=== PATIENT | male | born 1940 | race Caucasian/White ===

== ENCOUNTER 2017-06-30 09:04 | Day surgery (SDC) | payer MEDICARE, OTHER ==
[~2017-06-30 09:04] MED LIST: Lactated Ringers 1,000 ML IV SCH
[2017-06-30] MEDS ORDERED: Propofol 200 MG/20 ML SDV ONE (09:10)
--- NOTE | 2017-06-30 09:42 | PCM.PREANE ---
Preanesthetic Assessment - Anesthesia/Transfusion/Family Hx Anesthesia History: Prior Anesthesia Without Reaction Family History of Anesthesia Reaction: No Transfusion History: No Prior Transfusion(s) - Review of Systems General: No Symptoms Pulmonary: No Symptoms Cardiovascular: No Symptoms Gastrointestinal: Abdominal Pain, Constipation Neurological: Other (chronic pain LLE) - Physical Assessment O2 Sat by Pulse Oximetry: 98 Respiratory Rate: 16 Vital Signs: Last Vital Signs Temp 36.2 C 06/30/17 09:09 Pulse 60 06/30/17 09:09 Resp 16 06/30/17 09:09 BP 137/89 06/30/17 09:09 Pulse Ox 98 06/30/17 09:09 Height: 1.7 m Weight: 83.915 kg ASA Class: 2 Mental Status: Alert & Oriented x3 Airway Class: Mallampati = 3 Dentition: Reports: Normal Dentition ROM/Head Extension: Full Lungs: Clear to Auscultation, Normal Respiratory Effort Cardiovascular: Regular Rate, Regular Rhythm - Allergies Allergies/Adverse Reactions: Allergies Allergy/AdvReac Type Severity Reaction Status Date / Time No Known Allergies Allergy Verified 06/30/17 09:33 - Anesthesia Plan Pre-Op Medication Ordered: None - Acknowledgements Anesthesia Type Planned: MAC Pt an Appropriate Candidate for the Planned Anesthesia: Yes Alternatives and Risks of Anesthesia Discussed w Pt/Guardian: Yes Pt/Guardian Understands and Agrees with Anesthesia Plan: Yes PreAnesthesia Questionnaire Other HEENT History: wears glasses Cardiovascular History: Reports: High Cholesterol, Hypertension Respiratory History: Reports: None Gastrointestinal History: Reports: Other (See Below) Genitourinary History: Reports: None Musculoskeletal History: Reports: Back Pain, Chronic 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, 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 Hemorrhoidectomy - SUBSTANCE USE Smoking Status *Q: Never Smoker Tobacco Use Within Last Twelve Months: No Second Hand Smoke Exposure: No Days Per Week of Alcohol Use: 7 Number of Drinks Per Day: 3 Total Drinks Per Week: 21 Recreational Drug Use History: No - HOME MEDS Home Medications: Home Meds Aspirin [[place] Aspirin] 81 mg PO DAILY 09/30/14 [History] Fish Oil/[place]-3 Fatty Acids [Fish Oil 1,000 MG] 1 tab PO DAILY 09/30/14 [ History] Lisinopril/Hydrochlorothiazide [Lisinopril-Hctz 20-12.5 mg Tab] 0.5 tab PO DAILY 09/30/14 [History] Multivitamin [Multivitamins] 1 tab PO DAILY 09/30/14 [History] Ergocalciferol (Vitamin D2) [Vitamin D] 1,000 units PO DAILY 04/25/16 [History] Gabapentin [Neurontin] 900 mg PO DAILY 11/02/16 [History] Hydrocodone/Acetaminophen [Hydrocodon-Acetaminophen 5-325] 1 tab PO ASDIRECTED PRN 11/02/16 [History] Vitamin B6-pyridOXINE 1 tab PO DAILY 11/02/16 [History] Docusate Sodium/Sennosides [Senna Plus] 1 tab PO ASDIRECTED PRN 06/27/17 [ History] Vitamin E 1,000 unit PO DAILY 06/27/17 [History] - CURRENT (IN HOUSE) MEDS Current Meds: Current Medications Lactated Ringer's (Ringers, Lactated) 1,000 mls @ 125 mls/hr IV ASDIRECTED PETEY Last Admin: 06/30/17 09:11 Dose: 125 mls/hr Discontinued Medications Lidocaine HCl (Xylocaine-Mpf 1%) Confirm Administered Dose 5 ml .ROUTE .STK-MED ONE Stop: 06/30/17 09:12 Propofol (Diprivan 20 Ml) Confirm Administered Dose 400 mg .ROUTE .STK-MED ONE Stop: 06/30/17 09:11
[2017-06-30] MEDS ORDERED: Lactated Ringers 1,000 ML IV SCH (11:30)
--- NOTE | 2017-06-30 11:30 | PCM.OPNOTE ---
- General Post-Op/Procedure Note Date of Surgery/Procedure: 06/30/17 Operative Procedure(s): Colonoscopy with biopsy of anastomosis Pre Op Diagnosis: Change in bowel habits. Personal history of colon cancer. Rectal tenesmus. Post-Op Diagnosis: Rectal polyp. Sigmoid diverticulosis. Anesthesia Technique: MAC (ASA II) Primary Surgeon: Ayden Tran Condition: Good Free Text/Narrative:: Dictation [id number] CPT CODE [id number]
--- NOTE | 2017-06-30 11:49 | PCM48HPAN ---
Post Anesthesia Note - EVALUATION WITHIN 48HRS OF ANESTHETIC Vital Signs in Normal Range: Yes Patient Participated in Evaluation: Yes Respiratory Function Stable: Yes Airway Patent: Yes Cardiovascular Function Stable: Yes Hydration Status Stable: Yes Pain Control Satisfactory: Yes Nausea and Vomiting Control Satisfactory: Yes Mental Status Recovered: Yes
--- NOTE | 2017-06-30 11:49 | PCM.POSTAN ---
POST ANESTHESIA ASSESSMENT - MENTAL STATUS Mental Status: Alert, Oriented - RESPIRATORY Respiratory Status: Respiratory Rate WNL, Airway Patent, O2 Saturation Stable - CARDIOVASCULAR CV Status: Pulse Rate WNL, Blood Pressure Stable - GASTROINTESTINAL GI Status: No Symptoms - POST OP HYDRATION Hydration Status: Adequate & Stable
[2017-06-30 12:20] VITALS: BP 122/82
--- NOTE | 2017-06-30 12:27 | OR ---
SURGEON: Ayden Tran M.D. DATE OF PROCEDURE: 06/30/2017 OPERATION PERFORMED: Colonoscopy with biopsy of anastomosis. ANESTHESIA: MAC. ASA CLASSIFICATION: II. PREOPERATIVE DIAGNOSES: 1. Change in bowel habits. 2. Personal history of colon cancer. 3. Tenesmus. POSTOPERATIVE DIAGNOSIS: Diverticulosis. DESCRIPTION OF PROCEDURE: The patient was taken to the endoscopy room, positioned on the endoscopy table in the left lateral decubitus position. Time-out was called for appropriate identification of the patient and procedure. Monitored anesthesia care was provided. The colonoscope was inserted into the rectum and advanced with minimal difficulty to the cecum where the colonoscope was retroflexed to visualize the ascending colon from below. Colonoscope was then straightened and slowly withdrawn. The cecum, ascending colon, hepatic flexure, transverse colon, splenic flexure, and descending colon showed no tumors, polyps, diverticula, or angiodysplastic changes. Sigmoid colon demonstrates moderate diverticular change. No stricture, spasm, or bleeding was noted. The colonoscope was withdrawn to the distal sigmoid colon and rectal junction where anastomosis was easily seen. There was some prominence to the anastomosis and biopsies of this area were obtained. Again, diverticular changes were noted. The colonoscope was retroflexed in the rectum to visualize the anal orifice from above. No tumors, polyps, or acute hemorrhoidal changes were noted. The colonoscope was then straightened, the rectum aspirated, and the colonoscope removed. The patient tolerated the procedure well and was taken to recovery room in stable condition. PANCHO / HILDA /[id number]
== END 2017-06-30 12:07 | disposition home or self-care (01) ==
LOC: MW.SDS 09:04
PROVIDERS: ATTEND Surgery
DX: K57.30 Diverticulosis of large intestine without perforation or abscess without bleeding (principal); E78.5 Hyperlipidemia, unspecified; I10 Essential (primary) hypertension; E79.0 Hyperuricemia without signs of inflammatory arthritis and tophaceous disease; Z79.899 Other long term (current) drug therapy; Z98.890 Other specified postprocedural states; Z90.49 Acquired absence of other specified parts of digestive tract
CPT/HCPCS: 45378; J7120; 00810; 88305; J2704

== ENCOUNTER 2018-06-23 11:07 | Emergency (ER) | payer MEDICARE, OTHER ==
--- NOTE | 2018-06-23 11:51 | EDM.PDOC ---
ED HPI GENERAL MEDICAL PROBLEM - General Chief Complaint: Back Pain or Injury Stated Complaint: BACK PAIN Time Seen by Provider: 06/23/18 11:45 Source of Information: Reports: Patient History Limitations: Reports: No Limitations - History of Present Illness INITIAL COMMENTS - FREE TEXT/NARRATIVE: HISTORY AND PHYSICAL: History of present illness: Patient is a 78-year-old male here with complaint of left lower back pain. Patient has a history of chronic low back pain with left-sided radiculopathy. He also has a history of chemotherapy induced neuropathic leg pain. He saw Dr. Deras recently and does have an MRI scheduled in 2 days as well as a referral to pain management. Patient states the pain is unbearable at this point and is requesting pain medications. He does take gabapentin for the neuropathy. He states he has hydrocodone which he takes for bowel issues which he has not tried taking for his pain. He states 2 days ago he was raking leaves and this exacerbated his back pain. He states it is an 8/10 at current but is a 10/10 with movement. He denies any saddle anesthesia, LE weakness, fevers or chills. He does have a history of bowel and bladder incontinence for years due to colon cancer but denies any worsening symptoms. Patient states he has gotten morphine in the past and this worked well for him. Review of systems: As per history of present illness and below otherwise all systems reviewed and negative. Past medical history: As per history of present illness and as reviewed below otherwise noncontributory. Surgical history: As per history of present illness and as reviewed below otherwise noncontributory. Social history: No reported history of drug or alcohol abuse. Family history: As per history of present illness and as reviewed below otherwise noncontributory. Physical exam: General: Patient sitting comfortably in no acute distress and nontoxic appearing HEENT: Atraumatic, normocephalic, pupils reactive, negative for conjunctival pallor or scleral icterus, mucous membranes moist, throat clear, neck supple, nontender, trachea midline. No meningeal signs. Lungs: Clear to auscultation, breath sounds equal bilaterally, chest nontender. Heart: S1S2, regular, negative for clicks, rubs, or overt murmur. Abdomen: Soft, nondistended, nontender. Negative for masses or hepatosplenomegaly. Negative for costovertebral tenderness. Pelvis: Stable nontender. Genitourinary: Deferred. Rectal: Deferred. Spine: No cervical, thoracic, or lumbar spinous process tenderness. Pain to palpation of the left lumbar paraspinals. Extremities: Atraumatic, negative for cords or calf pain. Neurovascular unremarkable. Dorsiflexion, plantarflexion, inversion, and eversion strength 5/ 5 bilaterally. Neuro: Awake, alert, oriented. Cranial nerves II through XII unremarkable. Cerebellum unremarkable. Motor and sensory unremarkable throughout. Exam nonfocal. Notes: Diagnostics: None Therapeutics: 4mg Morphine IM Prescriptions: Oxycodone 5mg (#10) Impression: Lumbar radiculopathy Plan: 1. Take oxycodone as needed for severe pain. Do not drive while taking this medication as it may make you drowsy. Do not taking with hydrocodone. 2. Follow up with your primary care provider 3. Return to ED as needed as discussed Definitive disposition and diagnosis as appropriate pending reevaluation and review of above. Left Back Pain Score (Numeric/FACES): 8 - Related Data Allergies Allergy/AdvReac Type Severity Reaction Status Date / Time No Known Allergies Allergy Verified 06/23/18 11:33 Home Meds: Home Meds Aspirin [[place] Aspirin EC] 81 mg PO DAILY 09/30/14 [History] Fish Oil/[place]-3 Fatty Acids [Fish Oil 1,000 MG] 1 tab PO DAILY 09/30/14 [ History] Lisinopril/Hydrochlorothiazide [Lisinopril-Hctz 20-12.5 mg Tab] 0.5 tab PO DAILY 09/30/14 [History] Multivitamin [Multivitamins] 1 tab PO DAILY 09/30/14 [History] Ergocalciferol (Vitamin D2) [Vitamin D] 1,000 units PO DAILY 04/25/16 [History] Gabapentin [Neurontin] 900 mg PO DAILY 11/02/16 [History] Vitamin B6-pyridOXINE 1 tab PO DAILY 11/02/16 [History] Docusate Sodium/Sennosides [Senna Plus] 1 tab PO ASDIRECTED PRN 06/27/17 [ History] Vitamin E 1,000 unit PO DAILY 06/27/17 [History] oxyCODONE 5 mg PO Q6HR PRN #10 tab 06/23/18 [Rx] Past Medical History Other HEENT History: wears glasses Cardiovascular History: Reports: High Cholesterol, Hypertension Respiratory History: Reports: None Gastrointestinal History: Reports: Other (See Below) Genitourinary History: Reports: None Musculoskeletal History: Reports: Back Pain, Chronic 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, 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 Psychiatric History: Reports: None Endocrine/Metabolic History: Reports: None Hematologic History: Reports: Anemia Immunologic History: Reports: None Oncologic (Cancer) History: Reports: Colon - Infectious Disease History Infectious Disease History: Reports: None - Past Surgical History Head Surgeries/Procedures: Reports: None HEENT Surgical History: Reports: Adenoidectomy, Tonsillectomy GI Surgical History: Reports: Colonoscopy, Colostomy, Hernia Repair/Other Social & Family History - Family History Family Medical History: Noncontributory - Tobacco Use Smoking Status *Q: Never Smoker - Caffeine Use Caffeine Use: Reports: Coffee - Recreational Drug Use Recreational Drug Use: No ED ROS GENERAL - Review of Systems Review Of Systems: ROS reveals no pertinent complaints other than HPI. ED EXAM,LOWER BACK PAIN/INJURY - Physical Exam Exam: See Below (see dictation) Course - Vital Signs Last Recorded V/S: Last Vital Signs Temp 36.8 C 06/23/18 11:29 Pulse 57 L 06/23/18 11:29 Resp 16 06/23/18 11:29 BP 161/56 H 06/23/18 11:29 Pulse Ox 99 06/23/18 11:29 - Orders/Labs/Meds Meds: Medications Discontinued Medications Generic Name Dose Route Start Last Admin Trade Name Freq PRN Reason Stop Dose Admin Morphine Sulfate 4 mg 06/23/18 11:53 06/23/18 12:01 Morphine IM 06/23/18 11:54 4 mg ONETIME ONE Administration Departure - Departure Time of Disposition: 12:38 Disposition: Home, Self-Care 01 Condition: Good Clinical Impression: Lumbar radiculopathy - Discharge Information Prescriptions: oxyCODONE 5 mg PO Q6HR PRN #10 tab PRN Reason: Pain (Severe 7-10) Referrals: PCP,None [Primary Care Provider] - Forms: ED Department Discharge Additional Instructions: The following information is given to patients seen in the emergency department who are being discharged to home. This information is to outline your options for follow-up care. We provide all patients seen in our emergency department with a follow-up referral. The need for follow-up, as well as the timing and circumstances, are variable depending upon the specifics of your emergency department visit. If you don't have a primary care physician on staff, we will provide you with a referral. We always advise you to contact your personal physician following an emergency department visit to inform them of the circumstance of the visit and for follow-up with them and/or the need for any referrals to a consulting specialist. The emergency department will also refer you to a specialist when appropriate. This referral assures that you have the opportunity for follow-up care with a specialist. All of these measure are taken in an effort to provide you with optimal care, which includes your follow-up. Under all circumstances we always encourage you to contact your private physician who remains a resource for coordinating your care. When calling for follow-up care, please make the office aware that this follow-up is from your recent emergency room visit. If for any reason you are refused follow-up, please contact the [facility] Emergency Department at and asked to speak to the emergency department charge nurse. [facility] [address] [place] [id number] 1. Take oxycodone as needed for severe pain. Do not drive while taking this medication as it may make you drowsy. Do not taking with hydrocodone. 2. Follow up with your primary care provider 3. Return to ED as needed as discussed
[2018-06-23] MEDS ORDERED: Morphine 4 MG/ML Syringe IM ONE (11:53)
[2018-06-23 12:47] VITALS: BP 162/48
== END 2018-06-23 12:49 | disposition home or self-care (01) ==
LOC: MW.ED 11:07
DX: M54.16 Radiculopathy, lumbar region (principal); I10 Essential (primary) hypertension
CPT/HCPCS: 96372; 99283; J2270; 99282

== ENCOUNTER 2019-01-04 15:28 | Emergency (ER) | payer MEDICARE, OTHER ==
--- NOTE | 2019-01-04 15:49 | EDM.PDOC ---
ED HPI GENERAL MEDICAL PROBLEM - General Chief Complaint: General Stated Complaint: SICK Time Seen by Provider: 01/04/19 15:44 - History of Present Illness INITIAL COMMENTS - FREE TEXT/NARRATIVE: HISTORY AND PHYSICAL: History of present illness: Patient 78-year-old white male who presents with concern cough sore throat and right ear pain since last Monday somewhat off and on he states the cough is increased and this made it difficult to sleep he denies nausea vomiting fever chills or other complaints Review of systems: As per history of present illness and below otherwise all systems reviewed and negative. Past medical history: As per history of present illness and as reviewed below otherwise noncontributory. Surgical history: As per history of present illness and as reviewed below otherwise noncontributory. Social history: No reported history of drug or alcohol abuse. Family history: As per history of present illness and as reviewed below otherwise noncontributory. Physical exam: HEENT: Atraumatic, normocephalic, pupils reactive, negative for conjunctival pallor or scleral icterus, mucous membranes moist, throat clear, neck supple, nontender, trachea midline. TMs clear bilaterally Lungs: Clear to auscultation, breath sounds equal bilaterally, chest nontender. Heart: S1S2, regular, negative for clicks, rubs, or JVD. Abdomen: Soft, nondistended, nontender. Negative for masses or hepatosplenomegaly. Negative for costovertebral tenderness. Pelvis: Stable nontender. Genitourinary: Deferred. Rectal: Deferred. Extremities: Atraumatic, negative for cords or calf pain. Neurovascular unremarkable. Neuro: Awake, alert, oriented. Cranial nerves II through XII unremarkable. Cerebellum unremarkable. Motor and sensory unremarkable throughout. Exam nonfocal. Diagnostics: CBC CMP blood culture 2 lactic acid influenza screen chest x-ray Therapeutics: None Impression: #1 otalgia #2 pharyngitis #3 pneumonitis Definitive disposition and diagnosis as appropriate pending reevaluation and review of above. - Related Data Allergies Allergy/AdvReac Type Severity Reaction Status Date / Time No Known Allergies Allergy Verified 06/23/18 11:33 Home Meds: Home Meds Aspirin [[place] Aspirin EC] 81 mg PO DAILY 09/30/14 [History] Fish Oil/[place]-3 Fatty Acids [Fish Oil 1,000 MG] 1 tab PO DAILY 09/30/14 [ History] Lisinopril/Hydrochlorothiazide [Lisinopril-Hctz 20-12.5 mg Tab] 0.5 tab PO DAILY 09/30/14 [History] Multivitamin [Multivitamins] 1 tab PO DAILY 09/30/14 [History] Ergocalciferol (Vitamin D2) [Vitamin D] 1,000 units PO DAILY 04/25/16 [History] Gabapentin [Neurontin] 900 mg PO DAILY 11/02/16 [History] Vitamin B6-pyridOXINE 1 tab PO DAILY 11/02/16 [History] Docusate Sodium/Sennosides [Senna Plus] 1 tab PO ASDIRECTED PRN 06/27/17 [ History] Vitamin E 1,000 unit PO DAILY 06/27/17 [History] oxyCODONE 5 mg PO Q6HR PRN #10 tab 06/23/18 [Rx] Past Medical History Other HEENT History: wears glasses Cardiovascular History: Reports: High Cholesterol, Hypertension Respiratory History: Reports: None Gastrointestinal History: Reports: Other (See Below) Genitourinary History: Reports: None Musculoskeletal History: Reports: Back Pain, Chronic 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, 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 Psychiatric History: Reports: None Endocrine/Metabolic History: Reports: None Hematologic History: Reports: Anemia Immunologic History: Reports: None Oncologic (Cancer) History: Reports: Colon - Infectious Disease History Infectious Disease History: Reports: None - Past Surgical History Head Surgeries/Procedures: Reports: None HEENT Surgical History: Reports: Adenoidectomy, Tonsillectomy GI Surgical History: Reports: Colonoscopy, Colostomy, Hernia Repair/Other Social & Family History - Family History Family Medical History: Noncontributory - Caffeine Use Caffeine Use: Reports: Coffee ED ROS GENERAL - Review of Systems Review Of Systems: ROS reveals no pertinent complaints other than HPI. ED EXAM, GENERAL - Physical Exam Exam: See Below (Dictation) Course - Vital Signs Last Recorded V/S: Last Vital Signs Temp 37.1 C 01/04/19 15:47 Pulse 63 01/04/19 17:30 Resp 18 01/04/19 17:30 BP 135/64 01/04/19 17:30 Pulse Ox 98 01/04/19 17:30 - Orders/Labs/Meds Orders: Active Orders 24 hr Category Date Time Status Chest 1V Frontal [CR] Stat Exams 01/04/19 15:47 Taken CULTURE BLOOD [BC] Stat Lab 01/04/19 16:11 Received CULTURE BLOOD [BC] Stat Lab 01/04/19 16:34 Received CULTURE STREP A CONFIRMATION [RM] Stat Lab 01/04/19 16:33 Results STREP SCRN A RAPID W CULT CONF [RM] Stat Lab 01/04/19 16:33 Results Blood Culture x2 Reflex Set [OM.PC] Stat Oth 01/04/19 15:47 Ordered Labs: Laboratory Tests 01/04/19 01/04/19 01/04/19 Range/Units 16:11 16:11 16:11 WBC 9.90 (4.0-11.0) K/uL RBC 4.36 L (4.50-5.90) M/uL Hgb 13.7 (13.0-17.0) g/dL Hct 40.0 (38.0-50.0) % MCV 91.7 (80.0-98.0) fL MCH 31.4 (27.0-32.0) pg MCHC 34.3 (31.0-37.0) g/dL RDW Std Deviation 43.9 (28.0-62.0) fl RDW Coeff of [place] 13 (11.0-15.0) % Plt Count 242 (150-400) K/uL MPV 9.70 (7.40-12.00) fL Neut % (Auto) 65.8 (48.0-80.0) % Lymph % (Auto) 17.2 (16.0-40.0) % [place] % (Auto) 15.8 H (0.0-15.0) % Eos % (Auto) 1.0 (0.0-7.0) % Baso % (Auto) 0.2 (0.0-1.5) % Neut # (Auto) 6.5 H (1.4-5.7) K/uL Lymph # (Auto) 1.7 (0.6-2.4) K/uL [place] # (Auto) 1.6 H (0.0-0.8) K/uL Eos # (Auto) 0.1 (0.0-0.7) K/uL Baso # (Auto) 0.0 (0.0-0.1) K/uL Nucleated RBC % 0.0 /100WBC Nucleated RBCs # 0 K/uL Lactate 0.7 (0.20-2.00) mmol/L Sodium 136 (136-148) mmol/L Potassium 3.7 (3.5-5.1) mmol/L Chloride 102 (98-107) mmol/L Carbon Dioxide 21.4 (21.0-32.0) mmol/L BUN 22 H (7.0-18.0) mg/dL Creatinine 1.2 (0.8-1.3) mg/dL Est Cr Clr Drug Dosing 48.96 mL/min Estimated GFR (MDRD) 58.9 ml/min Glucose 101 (74-106) mg/dL Calcium 8.9 (8.5-10.1) mg/dL Total Bilirubin 0.5 (0.2-1.0) mg/dL AST 46 H (15-37) IU/L ALT 89 H (14-63) IU/L Alkaline Phosphatase 151 H (46-116) U/L Total Protein 7.5 (6.4-8.2) g/dL Albumin 3.3 L (3.4-5.0) g/dL Globulin 4.2 H (2.6-4.0) g/dL Albumin/Globulin Ratio 0.8 L (0.9-1.6) Departure - Departure Time of Disposition: 17:50 Disposition: Home, Self-Care 01 Condition: Good Clinical Impression: Pharyngitis, Pneumonitis, Otalgia - Discharge Information Referrals: Arturo Deras MD [Primary Care Provider] - Forms: ED Department Discharge Additional Instructions: The following information is given to patients seen in the emergency department who are being discharged to home. This information is to outline your options for follow-up care. We provide all patients seen in our emergency department with a follow-up referral. The need for follow-up, as well as the timing and circumstances, are variable depending upon the specifics of your emergency department visit. If you don't have a primary care physician on staff, we will provide you with a referral. We always advise you to contact your personal physician following an emergency department visit to inform them of the circumstance of the visit and for follow-up with them and/or the need for any referrals to a consulting specialist. The emergency department will also refer you to a specialist when appropriate. This referral assures that you have the opportunity for followup care with a specialist. All of these measure are taken in an effort to provide you with optimal care, which includes your followup. Under all circumstances we always encourage you to contact your private physician who remains a resource for coordinating your care. When calling for followup care, please make the office aware that this follow-up is from your recent emergency room visit. If for any reason you are refused follow-up, please contact the [facility] emergency department at and asked to speak to the emergency department charge nurse. Augmentin as prescribed continue current medications follow primary medical doctor as needed as discussed and return as needed as discussed - My Orders Last 24 Hours: My Active Orders 01/04/19 15:47 Chest 1V Frontal [CR] Stat Blood Culture x2 Reflex Set [OM.PC] Stat 01/04/19 16:11 CULTURE BLOOD [BC] Stat 01/04/19 16:33 CULTURE STREP A CONFIRMATION [RM] Stat STREP SCRN A RAPID W CULT CONF [RM] Stat 01/04/19 16:34 CULTURE BLOOD [BC] Stat - Assessment/Plan Last 24 Hours: My Active Orders 01/04/19 15:47 Chest 1V Frontal [CR] Stat Blood Culture x2 Reflex Set [OM.PC] Stat 01/04/19 16:11 CULTURE BLOOD [BC] Stat 01/04/19 16:33 CULTURE STREP A CONFIRMATION [RM] Stat STREP SCRN A RAPID W CULT CONF [RM] Stat 01/04/19 16:34 CULTURE BLOOD [BC] Stat
[2019-01-04 18:04] VITALS: BP 135/67
--- NOTE | 2019-01-07 11:31 | CR ---
EXAM DATE: 01/04/19 PATIENT'S AGE: 78 Patient: MANSI HARRIS Facility: [facility] Site Site : [id number] Study: XRay-Chest [id number]/19/2019 4:16:38 PM Ordering Physician: GUILHERME SY MD Final Report: INDICATION: Pain, shortness of breath TECHNIQUE: Chest 1 view. COMPARISON: 03/03/2016 FINDINGS: Cardiovascular and mediastinum: Heart size and vasculature are normal in caliber and appearance. Mediastinum is within normal limits. Left-sided port-a- catheter tip in the SVC. Lungs and pleural space: Left costophrenic angle opacity versus overlapping soft tissue. No sign of pleural effusion. No pneumothorax. Bones and soft tissues: No significant findings. IMPRESSION: Left costophrenic angle opacity versus overlapping soft tissue. Recommend lateral view. Dictated by Dewayne Colindres MD @ 01/04/2019 5:15:50 PM Dictated by: Dewayne Colindres MD @ 01/04/2019 17:15:58 Signed by: Dewayne Colindres MD @01/04/2019 5:15:58 PM (Electronic Signature) Report Signed by Proxy. [facility]
== END 2019-01-04 18:04 | disposition home or self-care (01) ==
LOC: MW.ED 15:28
DX: J18.9 Pneumonia, unspecified organism (principal); J02.9 Acute pharyngitis, unspecified; H92.01 Otalgia, right ear; I10 Essential (primary) hypertension; E78.00 Pure hypercholesterolemia, unspecified; D64.9 Anemia, unspecified; Z79.82 Long term (current) use of aspirin; Z79.899 Other long term (current) drug therapy
CPT/HCPCS: 36415; 71045; 71045-26; 80053; 83605; 85025; 87040; 87081; 87804; 87880-QW; 99283; 99283-25

== ENCOUNTER 2019-05-03 09:27 | Day surgery (SDC) | payer MEDICARE, OTHER ==
--- NOTE | 2019-05-03 10:20 | PCM.PREANE ---
Preanesthetic Assessment - Anesthesia/Transfusion/Family Hx Anesthesia History: Prior Anesthesia Without Reaction Family History of Anesthesia Reaction: No Transfusion History: No Prior Transfusion(s) - Review of Systems General: No Symptoms Pulmonary: No Symptoms Cardiovascular: No Symptoms Gastrointestinal: Difficulty Swallowing Neurological: Paresthesia Other: Reports: None - Physical Assessment NPO Status Date: 05/02/19 Vital Signs: Last Vital Signs Temp 97.9 F 05/03/19 09:45 Pulse 45 L 05/03/19 09:45 Resp 16 05/03/19 09:45 BP 137/67 05/03/19 09:45 Pulse Ox 99 05/03/19 09:45 Height: 5 ft 7 in Weight: 85.275 kg ASA Class: 2 Mental Status: Alert & Oriented x3 Airway Class: Mallampati = 2 Dentition: Reports: Normal Dentition ROM/Head Extension: Full Lungs: Clear to Auscultation, Normal Respiratory Effort Cardiovascular: Regular Rate, Regular Rhythm - Allergies Allergies/Adverse Reactions: Allergies Allergy/AdvReac Type Severity Reaction Status Date / Time No Known Allergies Allergy Verified 04/30/19 08:30 - Blood Blood Available: No - Anesthesia Plan Pre-Op Medication Ordered: None - Acknowledgements Anesthesia Type Planned: General Anesthesia Pt an Appropriate Candidate for the Planned Anesthesia: Yes Alternatives and Risks of Anesthesia Discussed w Pt/Guardian: Yes Pt/Guardian Understands and Agrees with Anesthesia Plan: Yes Additional Comments: PMH: htn, peripheral neuropathy feet- rx naltrexone 4.5 mg/day PLAN:tiva PreAnesthesia Questionnaire HEENT History: Reports: Other (See Below) Other HEENT History: wears glasses Cardiovascular History: Reports: Heart Murmur, High Cholesterol, Hypertension Respiratory History: Reports: None Gastrointestinal History: Reports: Other (See Below) Genitourinary History: Reports: None Musculoskeletal History: Reports: Other (See Below) Other Musculoskeletal History: spinal stenosis 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, 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, restless legs Psychiatric History: Reports: None Endocrine/Metabolic History: Reports: None Hematologic History: Reports: Anemia Immunologic History: Reports: None Oncologic (Cancer) History: Reports: Colon Dermatologic History: Reports: None - Infectious Disease History Infectious Disease History: Reports: None - Past Surgical History Head Surgeries/Procedures: Reports: None HEENT Surgical History: Reports: Adenoidectomy, Tonsillectomy Cardiovascular Surgical History: Reports: None Respiratory Surgical History: Reports: None GI Surgical History: Reports: Colon, Colonoscopy, Colostomy, Hernia, Inguinal Other GI Surgeries/Procedures: hx colon cancer with partial colectomy with colostomy (01/30) and later colostomy reversal Male Surgical History: Reports: None Endocrine Surgical History: Reports: None Neurological Surgical History: Reports: None Musculoskeletal Surgical History: Reports: None Oncologic Surgical History: Reports: Other (See Below) Other Oncologic Surgeries/Procedures: taylor cath placement-left chest Dermatological Surgical History: Reports: None - SUBSTANCE USE Smoking Status *Q: Former Smoker Tobacco Use Within Last Twelve Months: No Recreational Drug Use History: No - HOME MEDS Home Medications: Home Meds Aspirin [[place] Aspirin EC] 81 mg PO DAILY 09/30/14 [History] Fish Oil/[place]-3 Fatty Acids [Fish Oil 1,000 MG] 2 tab PO DAILY 09/30/14 [ History] Lisinopril/Hydrochlorothiazide [Lisinopril-Hctz 20-12.5 mg Tab] 0.5 tab PO DAILY 09/30/14 [History] Vitamin B6-pyridOXINE 1 tab PO DAILY 11/02/16 [History] Vitamin E 400 unit PO DAILY 06/27/17 [History] Cholecalciferol (Vitamin D3) [Vitamin D3] 1,000 units PO DAILY 04/30/19 [History ] Clobetasol [Clobetasol Propionate 0.05% Cream] 1 applic TOP ASDIRECTED PRN 04/30 [History] Cyanocobalamin/FA/Pyridoxine [Folbic] 1 tab PO DAILY 04/30/19 [History] Naltrexone HCl 4.5 mg PO BEDTIME 04/30/19 [History] Psyllium Husk/Aspartame [Metamucil [facility] Powder] 1 applic TOP ASDIRECTED PRN 04/30/19 [History] - CURRENT (IN HOUSE) MEDS Current Meds: Current Medications Lactated Ringer's (Ringers, Lactated) 1,000 mls @ 125 mls/hr IV ASDIRECTED PETEY Last Admin: 05/03/19 09:05 Dose: 125 mls/hr
[2019-05-03] MEDS ORDERED: Propofol 200 MG/20 ML SDV ONE (11:27)
[2019-05-03] MEDS ORDERED: Lidocaine 2% 5 ML SDV ONE (11:27)
[2019-05-03] MEDS ORDERED: fentaNYL 100 MCG/2 ML SDV ONE (11:28)
--- NOTE | 2019-05-03 11:59 | PCM.OPNOTE ---
- General Post-Op/Procedure Note Date of Surgery/Procedure: 05/03/19 Operative Procedure(s): Esophagogastroduodenoscopy with gastric biopsy Pre Op Diagnosis: Dysphagia Post-Op Diagnosis: Chronic gastritis. Presbyesophagus. Anesthesia Technique: MAC (ASA II) Primary Surgeon: Ayden Tran Condition: Good Free Text/Narrative:: DICTATION 895393 CPT CODE 01632
[2019-05-03] MEDS ORDERED: Lactated Ringers 1,000 ML IV SCH (12:00)
--- NOTE | 2019-05-03 12:15 | PCM.POSTAN ---
POST ANESTHESIA ASSESSMENT - MENTAL STATUS Mental Status: Alert, Oriented - VITAL SIGNS Vital Signs: Last Vital Signs Temp 97.9 F 05/03/19 09:45 Pulse 41 L 05/03/19 12:12 Resp 12 05/03/19 12:12 BP 130/59 L 05/03/19 12:12 Pulse Ox 94 L 05/03/19 12:12 - RESPIRATORY Respiratory Status: Respiratory Rate WNL, Airway Patent, O2 Saturation Stable - CARDIOVASCULAR CV Status: Pulse Rate WNL, Blood Pressure Stable - GASTROINTESTINAL GI Status: No Symptoms - POST OP HYDRATION Hydration Status: Adequate & Stable
--- NOTE | 2019-05-03 12:15 | PCM48HPAN ---
Post Anesthesia Note - EVALUATION WITHIN 48HRS OF ANESTHETIC Vital Signs in Normal Range: Yes Patient Participated in Evaluation: Yes Respiratory Function Stable: Yes Airway Patent: Yes Cardiovascular Function Stable: Yes Hydration Status Stable: Yes Pain Control Satisfactory: Yes Nausea and Vomiting Control Satisfactory: Yes Mental Status Recovered: Yes Vital Signs: Last Vital Signs Temp 97.9 F 05/03/19 09:45 Pulse 41 L 05/03/19 12:12 Resp 12 05/03/19 12:12 BP 130/59 L 05/03/19 12:12 Pulse Ox 94 L 05/03/19 12:12
[2019-05-03 12:30] VITALS: BP 159/70
--- NOTE | 2019-05-03 13:23 | OR ---
SURGEON: Ayden Tran M.D. DATE OF PROCEDURE: 05/03/2019 OPERATION PERFORMED: Esophagogastroduodenoscopy with gastric biopsy. PRIMARY SURGEON: Ayden Tran MD. ANESTHESIA: MAC. ASA CLASSIFICATION: II. PREOPERATIVE DIAGNOSIS: Dysphagia. POSTOPERATIVE DIAGNOSES: 1. Mild chronic gastritis. 2. Poor esophageal contractility, but no obvious stricture. DESCRIPTION OF PROCEDURE: The patient was taken to the endoscopy room and positioned on the endoscopy table in a supine position. Time-out was called for appropriate identification of the patient and procedure. Monitored anesthesia care was provided. The bite block was placed between the patient's teeth. The gastroscope was inserted through the bite block into the oropharynx and advanced without difficulty through the esophagus and stomach into the duodenum where examination was now carried out in a retrograde fashion. The duodenum shows no acute inflammatory changes or ulcerations. The stomach does show mild chronic gastritis. Antral biopsies were obtained to look for the presence of Helicobacter pylori. The gastroscope was then retroflexed to visualize the proximal stomach. No acute lesions were noted proximally. No hiatal hernia was noted. The gastroscope was then straightened and slowly withdrawn. The GE junction was well defined and shows no acute inflammatory changes or ulcerations. The esophagus itself demonstrates very poor longitudinal stripping waves. There were some tertiary contractions. There was no stricture noted anywhere throughout the esophagus and the scope was able to be advanced easily back and forth through the esophagus. The vocal cords were briefly visualized as the scope was withdrawn and noted to move symmetrically. No inflammatory changes were noted in the proximal esophagus or oropharynx. The gastroscope was then removed with the patient having tolerated the procedure well. He was then taken to recovery room in stable condition. PANCHO / HILDA /[id number]
== END 2019-05-03 12:33 | disposition home or self-care (01) ==
LOC: MW.SDS 09:27
PROVIDERS: ATTEND Surgery
DX: K29.50 Unspecified chronic gastritis without bleeding (principal); K22.4 Dyskinesia of esophagus; E78.5 Hyperlipidemia, unspecified; I10 Essential (primary) hypertension; M51.16 Intervertebral disc disorders with radiculopathy, lumbar region; M47.26 Other spondylosis with radiculopathy, lumbar region; M48.061 Spinal stenosis, lumbar region without neurogenic claudication; E78.00 Pure hypercholesterolemia, unspecified; Z79.899 Other long term (current) drug therapy; Z79.82 Long term (current) use of aspirin; Z85.038 Personal history of other malignant neoplasm of large intestine; Z87.891 Personal history of nicotine dependence; Z90.49 Acquired absence of other specified parts of digestive tract
CPT/HCPCS: 43239; J2001; J2704; J3010; J7120

== ENCOUNTER 2020-03-27 07:44 | Day surgery (SDC) | payer MEDICARE, OTHER ==
--- NOTE | 2020-03-27 08:08 | PCM.PREANE ---
Preanesthetic Assessment - Anesthesia/Transfusion/Family Hx Anesthesia History: Prior Anesthesia Without Reaction Family History of Anesthesia Reaction: No Transfusion History: No Prior Transfusion(s) - Review of Systems General: No Symptoms Pulmonary: No Symptoms Cardiovascular: No Symptoms Gastrointestinal: No Symptoms Neurological: Pre-Existing Deficit Other: Reports: None - Physical Assessment NPO Status Date: 03/26/20 Height: 5 ft 7 in Weight: 85.729 kg ASA Class: 2 Mental Status: Alert & Oriented x3 Airway Class: Mallampati = 2 Dentition: Reports: Normal Dentition ROM/Head Extension: Full Lungs: Clear to Auscultation, Normal Respiratory Effort Cardiovascular: Regular Rate, Regular Rhythm - Allergies Allergies/Adverse Reactions: Allergies Allergy/AdvReac Type Severity Reaction Status Date / Time No Known Allergies Allergy Verified 03/24/20 12:12 - Blood Blood Available: No - Anesthesia Plan Pre-Op Medication Ordered: None - Acknowledgements Anesthesia Type Planned: General Anesthesia (per surg request) Pt an Appropriate Candidate for the Planned Anesthesia: Yes Alternatives and Risks of Anesthesia Discussed w Pt/Guardian: Yes Pt/Guardian Understands and Agrees with Anesthesia Plan: Yes Additional Comments: PMH: 5x6 cm lesion mid back on mdline, periph neuropathy, htn, RLS PLAN: GET per surg request PreAnesthesia Questionnaire HEENT History: Reports: Hard of Hearing, Other (See Below) Other HEENT History: wears glasses, hard of hearing but rarely wears hearing aides Cardiovascular History: Reports: High Cholesterol, Hypertension Respiratory History: Reports: None Gastrointestinal History: Reports: Colon Polyp, Hemorrhoids, Other (See Below) Other Gastrointestinal History: occasional heartburn- takes Rolaids Genitourinary History: Reports: None Musculoskeletal History: Reports: Back Pain, Chronic Other Musculoskeletal History: spinal stenosis 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, Peripheral, Other (See Below) Other Neuro History: hx of motion sickness Psychiatric History: Reports: None Endocrine/Metabolic History: Reports: None Hematologic History: Reports: Anemia Immunologic History: Reports: None Oncologic (Cancer) History: Reports: Colon Dermatologic History: Reports: None - Infectious Disease History Infectious Disease History: Reports: None - Past Surgical History Head Surgeries/Procedures: Reports: None HEENT Surgical History: Reports: Adenoidectomy, Tonsillectomy GI Surgical History: Reports: Colon, Colonoscopy, Hernia, Abdominal, Hernia, Inguinal Other GI Surgeries/Procedures: Colon Resection with Colostomy for cancer in 2015- Colostomy Reversal Oncologic Surgical History: Reports: Other (See Below) Other Oncologic Surgeries/Procedures: Colon resection with colostomy- reversal of colostomy - SUBSTANCE USE Smoking Status *Q: Never Smoker Recreational Drug Use History: No - HOME MEDS Home Medications: Home Meds Aspirin [[place] Aspirin EC] 81 mg PO DAILY 09/30/14 [History] Fish Oil/[place]-3 Fatty Acids [Fish Oil 1,000 MG] 2,000 mg PO DAILY 09/30/14 [His tory] Lisinopril/Hydrochlorothiazide [Lisinopril-Hctz 20-12.5 mg Tab] 1 tab PO QAM 09/30/14 [History] Vitamin E 400 unit PO DAILY 06/27/17 [History] Clobetasol [Clobetasol Propionate 0.05% Cream] 1 applic TOP ASDIRECTED PRN 04/30/19 [History] Alpha Lipoic Acid 1 - 2 cap PO DAILY PRN 03/24/20 [History] Magnesium Oxide [Magnesium] 400 mg PO DAILY 03/24/20 [History] - CURRENT (IN HOUSE) MEDS Current Meds: Current Medications Lactated Ringer's (Ringers, Lactated) 1,000 mls @ 125 mls/hr IV ASDIRECTED PETEY
[2020-03-27] MEDS ORDERED: Lidocaine 2% 5 ML SDV ONE (08:19)
[2020-03-27] MEDS ORDERED: Rocuronium Bromide 50 MG/5 ML Syringe ONE (08:19)
[2020-03-27] MEDS ORDERED: fentaNYL 100 MCG/2 ML SDV ONE ×2 (08:19→09:28)
[2020-03-27] MEDS ORDERED: Propofol 200 MG/20 ML SDV ONE (08:19)
[2020-03-27] MEDS ORDERED: Succinylcholine/Sod PF 100 MG/5 ML SYRINGE IV ONE (08:20)
[2020-03-27] MEDS ORDERED: Ondansetron 4 MG/2 ML SDV ONE (08:20)
[2020-03-27] MEDS ORDERED: Bupivacaine 0.5% 30 ML SDV ONE (08:28)
[2020-03-27] MEDS ORDERED: Lidocaine 1% 20 ML MDV ONE (08:29)
[2020-03-27] MEDS ORDERED: Sugammadex Sodium 200 MG/2 ML VIAL ONE (09:00)
[2020-03-27] MEDS ORDERED: ePHEDrine 50 MG/ML SDV ONE (09:14)
[2020-03-27] MEDS ORDERED: Albuterol 0.083% 2.5 MG/3 ML Neb Soln NEB PRN (09:42)
[2020-03-27] MEDS ORDERED: 50% Dextrose in Water 50 ML Syringe IVPUSH PRN (09:42)
[2020-03-27] MEDS ORDERED: Naloxone 0.4 MG/ML Syringe IVPUSH PRN (09:42)
[2020-03-27] MEDS ORDERED: EPINEPHrine 1:10,000 1 MG/10 ML Syringe IVPUSH PRN (09:42)
[2020-03-27] MEDS ORDERED: Atropine 0.1 MG/ML 10 ML Syringe IVPUSH PRN ×2 (09:42)
[2020-03-27] MEDS ORDERED: fentaNYL 100 MCG/2 ML SDV IVPUSH PRN (09:42)
--- NOTE | 2020-03-27 09:57 | PCM.OPNOTE ---
- General Post-Op/Procedure Note Date of Surgery/Procedure: 03/27/20 Operative Procedure(s): Excision 5 cm x 6 cm back mass Pre Op Diagnosis: Enlarging back mass Post-Op Diagnosis: Inflamed and infected epidermal inclusion cyst Anesthesia Technique: General ET Tube Primary Surgeon: Ayden Tran Dining Service Supervisor: Joy Farnsworth Fluid Replacement, Intraop: 600 EBL in mLs: 5 Surgical Drain/Tube Type: Roll Condition: Good Free Text/Narrative:: DICTATION [id number] CPT CODE 75638
[2020-03-27] MEDS ORDERED: Lactated Ringers 1,000 ML IV SCH (10:00)
--- NOTE | 2020-03-27 10:48 | PCM48HPAN ---
Post Anesthesia Note - EVALUATION WITHIN 48HRS OF ANESTHETIC Vital Signs in Normal Range: Yes Patient Participated in Evaluation: Yes Respiratory Function Stable: Yes Airway Patent: Yes Cardiovascular Function Stable: Yes Hydration Status Stable: Yes Pain Control Satisfactory: Yes Nausea and Vomiting Control Satisfactory: Yes Mental Status Recovered: Yes Vital Signs: Last Vital Signs Temp 97.0 F 03/27/20 10:12 Pulse 47 L 03/27/20 10:12 Resp 14 03/27/20 10:12 BP 143/66 H 03/27/20 10:12 Pulse Ox 98 03/27/20 10:12
--- NOTE | 2020-03-27 10:48 | PCM.POSTAN ---
POST ANESTHESIA ASSESSMENT - MENTAL STATUS Mental Status: Alert, Oriented - VITAL SIGNS Vital Signs: Last Vital Signs Temp 97.0 F 03/27/20 10:12 Pulse 47 L 03/27/20 10:12 Resp 14 03/27/20 10:12 BP 143/66 H 03/27/20 10:12 Pulse Ox 98 03/27/20 10:12 - RESPIRATORY Respiratory Status: Respiratory Rate WNL, Airway Patent, O2 Saturation Stable - CARDIOVASCULAR CV Status: Pulse Rate WNL, Blood Pressure Stable - GASTROINTESTINAL GI Status: No Symptoms - POST OP HYDRATION Hydration Status: Adequate & Stable
[2020-03-27 11:10] VITALS: BP 122/50; PULSE 49
--- NOTE | 2020-03-27 14:17 | OR ---
SURGEON: Ayden Tran M.D. DATE OF PROCEDURE: 03/27/2020 OPERATION PERFORMED: Excision of 5 cm x 6 cm back mass. PRIMARY SURGEON: Ayden Tran MD. ACCOUNTING PROFESSIONAL: clinical data assistant: JOLEEN Sosa student. ANESTHESIA: General endotracheal. ASA CLASSIFICATION: II. PREOPERATIVE DIAGNOSIS: Enlarging back mass. POSTOPERATIVE DIAGNOSIS: Inflamed and infected inclusion cyst. INTRAOPERATIVE FLUID REPLACEMENT: 600 mL. ESTIMATED BLOOD LOSS: 5 mL. DESCRIPTION OF PROCEDURE: The patient was taken to the operating room and kept on the transfer cart in the supine position. Time-out was called for appropriate identification of the patient and procedure. Sequential compression boots were placed. Following satisfactory attainment of general endotracheal anesthesia, the patient was placed on the operating table in the prone position with care taken to pad all bony prominences and with rolls under the chest. The surgical site was then prepped with Betadine solution. Sterile drapes were applied. The area around the cyst was infiltrated with 10 mL of 0.5% Marcaine solution. Skin incision was made in an elliptical fashion to remove the pore. The cyst was entered and there was some cloudy fluid, although no foul odor. Aerobic and anaerobic cultures were obtained. Using electrocautery for dissection, the area was widely excised with care taken to try and avoid the cyst wall and also avoid leaving any cyst wall behind. Once the area was excised, the wound was inspected for hemostasis and bleeding sites were electrocoagulated or suture ligated with 3-0 Vicryl. No obvious cyst wall remains. The wound was irrigated with saline solution and all fluid was aspirated. The skin edges were then loosely reapproximated with interrupted 3-0 nylon sutures. Half-inch Danita drain was placed between each of the sutures. The wound was then dressed with 4 x 4's and an ABD held in place with Mefix tape. Sponge, needle, and instrument counts were all correct. The patient was then taken from the operating table and placed on the transfer cart in the supine position. He was then allowed to emerge from anesthesia, extubated and taken to recovery room in stable condition. PANCHO / HILDA /[id number] OMEGA
== END 2020-03-27 11:31 | disposition home or self-care (01) ==
LOC: MW.SDS 07:44
PROVIDERS: ATTEND Surgery
DX: L72.0 Epidermal cyst (principal); E78.5 Hyperlipidemia, unspecified; I10 Essential (primary) hypertension; G62.0 Drug-induced polyneuropathy; T45.1X5D Adverse effect of antineoplastic and immunosuppressive drugs, subsequent encounter; K22.4 Dyskinesia of esophagus; Z85.038 Personal history of other malignant neoplasm of large intestine; Z79.899 Other long term (current) drug therapy
CPT/HCPCS: 00300; 87070; 87075; 87205; 88305; J0330; J2001; J2405; J2704; J3010; J3490; J7120

== ENCOUNTER 2020-08-21 09:52 | Day surgery (SDC) | payer MEDICARE, OTHER ==
[~2020-08-21 09:52] MED LIST changes: +Lidocaine 2% 5 ML SDV ONE; +Propofol 200 MG/20 ML SDV ONE; +fentaNYL 100 MCG/2 ML SDV ONE
--- NOTE | 2020-08-21 10:22 | PCM.PREANE ---
Preanesthetic Assessment - Anesthesia/Transfusion/Family Hx Anesthesia History: Prior Anesthesia Without Reaction Family History of Anesthesia Reaction: No Transfusion History: No Prior Transfusion(s) - Review of Systems General: No Symptoms Pulmonary: No Symptoms Cardiovascular: No Symptoms Gastrointestinal: No Symptoms Neurological: Pre-Existing Deficit Other: Reports: None - Physical Assessment NPO Status Date: 08/20/20 Height: 5 ft 7 in Weight: 84.822 kg ASA Class: 2 Mental Status: Alert & Oriented x3 Airway Class: Mallampati = 2 Dentition: Reports: Normal Dentition ROM/Head Extension: Full Lungs: Clear to Auscultation, Normal Respiratory Effort Cardiovascular: Regular Rate, Regular Rhythm - Allergies Allergies/Adverse Reactions: Allergies Allergy/AdvReac Type Severity Reaction Status Date / Time No Known Allergies Allergy Verified 08/17/20 09:54 - Blood Blood Available: No - Anesthesia Plan Pre-Op Medication Ordered: None - Acknowledgements Anesthesia Type Planned: General Anesthesia Pt an Appropriate Candidate for the Planned Anesthesia: Yes Alternatives and Risks of Anesthesia Discussed w Pt/Guardian: Yes Pt/Guardian Understands and Agrees with Anesthesia Plan: Yes PreAnesthesia Questionnaire HEENT History: Reports: Hard of Hearing, Other (See Below) Other HEENT History: wears glasses, hard of hearing but rarely wears hearing aides Cardiovascular History: Reports: Hypertension Respiratory History: Reports: None Gastrointestinal History: Reports: Colon Polyp, Other (See Below) Other Gastrointestinal History: occasional heartburn- takes Rolaids Genitourinary History: Reports: None Musculoskeletal History: Reports: Back Pain, Chronic Neurological History: Reports: Other (See Below) Other Neuro History: hx of motion sickness Psychiatric History: Reports: None Endocrine/Metabolic History: Reports: None Hematologic History: Reports: None Immunologic History: Reports: None Oncologic (Cancer) History: Reports: Colon Dermatologic History: Reports: Other (See Below) Other Dermatologic History: states has dry areas on his scalp; uses a cream - Infectious Disease History Infectious Disease History: Reports: None - Past Surgical History Head Surgeries/Procedures: Reports: None HEENT Surgical History: Reports: Adenoidectomy, Tonsillectomy Cardiovascular Surgical History: Reports: None Respiratory Surgical History: Reports: None GI Surgical History: Reports: Colon, Colonoscopy, Colostomy, Hernia, Abdominal, Hernia, Inguinal Other GI Surgeries/Procedures: Colon Resection with Colostomy for cancer in 2015- Colostomy Reversal Female Surgical History: Reports: None Male Surgical History: Reports: None Endocrine Surgical History: Reports: None Neurological Surgical History: Reports: None Musculoskeletal Surgical History: Reports: None Oncologic Surgical History: Reports: Other (See Below) Other Oncologic Surgeries/Procedures: Colon resection with colostomy- reversal of colostomy Dermatological Surgical History: Reports: None - SUBSTANCE USE Tobacco Use Status *Q: Former Tobacco User Days Per Week of Alcohol Use: 7 - HOME MEDS Home Medications: Home Meds Aspirin [[place] Aspirin EC] 81 mg PO DAILY 09/30/14 [History] Fish Oil/[place]-3 Fatty Acids [Fish Oil 1,000 MG] 2,000 mg PO DAILY 09/30/14 [History] Lisinopril/Hydrochlorothiazide [Lisinopril-Hctz 20-12.5 mg Tab] 1 tab PO QAM 09/30/14 [History] Vitamin E 400 unit PO DAILY 06/27/17 [History] Clobetasol [Clobetasol Propionate 0.05% Cream] 1 applic TOP ASDIRECTED PRN 04/30/19 [History] Vitamin B6-pyridOXINE [Vitamin B6] 1 tab PO DAILY 08/17/20 [History] - CURRENT (IN HOUSE) MEDS Current Meds: Current Medications Lactated Ringer's (Ringers, Lactated) 1,000 mls @ 125 mls/hr IV ASDIRECTED PETEY Discontinued Medications Fentanyl (Sublimaze) Confirm Administered Dose 100 mcg .ROUTE .STK-MED ONE Stop: 08/21/20 08:33 Lidocaine (Xylocaine-Mpf 2%) Confirm Administered Dose 5 ml .ROUTE .STK-MED ONE Stop: 08/21/20 08:33 Propofol (Diprivan 20 Ml) Confirm Administered Dose 400 mg .ROUTE .STK-MED ONE Stop: 08/21/20 08:33
[2020-08-21] MEDS ORDERED: Glycopyrrolate 0.2 MG/ML SDV ONE ×3 (12:21→12:31)
--- NOTE | 2020-08-21 12:55 | PCM.OPNOTE ---
- General Post-Op/Procedure Note Date of Surgery/Procedure: 08/21/20 Operative Procedure(s): Colonoscopy with cold ascending colon polypectomy Pre Op Diagnosis: Personal and family history of rectal carcinoma. History of colon polyps. Post-Op Diagnosis: Ascending colon polyp. Sigmoid diverticulosis. Anesthesia Technique: MAC (ASA II) Primary Surgeon: Ayden Tran Condition: Good Free Text/Narrative:: DICTATION [id number] CPT CODE [id number]
[2020-08-21] MEDS ORDERED: Lactated Ringers 1,000 ML IV SCH (13:00)
--- NOTE | 2020-08-21 13:13 | OR ---
SURGEON: Ayden Tran M.D. DATE OF PROCEDURE: 08/21/2020 OPERATION PERFORMED: Colonoscopy with cold ascending colon polypectomy. PRIMARY SURGEON: Ayden Tran MD ANESTHESIA: MAC. ASA CLASSIFICATION: II. PREOPERATIVE DIAGNOSES: 1. Personal history of rectal cancer. 2. History of colon polyps. 3. Family history of colon cancer. POSTOPERATIVE DIAGNOSES: 1. Ascending colon polyp. 2. Sigmoid diverticulosis. DESCRIPTION OF PROCEDURE: The patient was taken to the endoscopy room and positioned on the endoscopy table in the left lateral decubitus position. Time-out was called for appropriate identification of the patient and the procedure. Monitored anesthesia care was provided. The colonoscope was inserted into the rectum and advanced without difficulty to the cecum. The cecum was identified by internal landmarks and external pressure. The colonoscope was retroflexed to visualize the ascending colon from below and then straightened and slowly withdrawn. One polyp was encountered in the cecum, and this was removed with the cold biopsy forceps. The remainder of the ascending colon, hepatic flexure, transverse colon, splenic flexure, and descending colon showed no tumors, polyps, diverticula, or angiodysplastic changes. A few scattered diverticula were noted in the sigmoid colon. The anastomosis was visualized and was widely patent. There was no evidence of recurrent disease. The colonoscope was then retroflexed to visualize the anal orifice from above. Again, no tumors or polyps were seen, and there were no acute hemorrhoidal changes. The colonoscope was then straightened, the rectum aspirated, and the colonoscope removed. The patient tolerated the procedure well and was taken to the recovery room in stable condition. PANCHO / HILDA /[id number]
--- NOTE | 2020-08-21 13:16 | PCM.POSTAN ---
POST ANESTHESIA ASSESSMENT - MENTAL STATUS Mental Status: Alert, Oriented - VITAL SIGNS Vital Signs: Last Vital Signs Temp 97.7 F 08/21/20 11:00 Pulse 53 L 08/21/20 12:55 Resp 10 L 08/21/20 12:55 BP 123/72 08/21/20 12:55 Pulse Ox 95 08/21/20 12:55 - RESPIRATORY Respiratory Status: Respiratory Rate WNL, Airway Patent, O2 Saturation Stable - CARDIOVASCULAR CV Status: Pulse Rate WNL, Blood Pressure Stable - GASTROINTESTINAL GI Status: No Symptoms - POST OP HYDRATION Hydration Status: Adequate & Stable
--- NOTE | 2020-08-21 13:17 | PCM48HPAN ---
Post Anesthesia Note - EVALUATION WITHIN 48HRS OF ANESTHETIC Vital Signs in Normal Range: Yes Patient Participated in Evaluation: Yes Respiratory Function Stable: Yes Airway Patent: Yes Cardiovascular Function Stable: Yes Hydration Status Stable: Yes Pain Control Satisfactory: Yes Nausea and Vomiting Control Satisfactory: Yes Mental Status Recovered: Yes Vital Signs: Last Vital Signs Temp 97.7 F 08/21/20 11:00 Pulse 53 L 08/21/20 12:55 Resp 10 L 08/21/20 12:55 BP 123/72 08/21/20 12:55 Pulse Ox 95 08/21/20 12:55
[2020-08-21 13:50] VITALS: BP 145/73; PULSE 50
== END 2020-08-21 13:25 | disposition home or self-care (01) ==
LOC: MW.SDS 09:52
PROVIDERS: ATTEND Surgery
DX: Z12.11 Encounter for screening for malignant neoplasm of colon (principal); K63.5 Polyp of colon; K57.30 Diverticulosis of large intestine without perforation or abscess without bleeding; I10 Essential (primary) hypertension; G89.4 Chronic pain syndrome; E78.5 Hyperlipidemia, unspecified; G62.0 Drug-induced polyneuropathy; T45.1X5A Adverse effect of antineoplastic and immunosuppressive drugs, initial encounter; Z85.038 Personal history of other malignant neoplasm of large intestine; Z79.82 Long term (current) use of aspirin; Z80.0 Family history of malignant neoplasm of digestive organs; Z85.048 Personal history of other malignant neoplasm of rectum, rectosigmoid junction, and anus; Z79.899 Other long term (current) drug therapy; Z98.890 Other specified postprocedural states; Z90.49 Acquired absence of other specified parts of digestive tract
CPT/HCPCS: 45380; J2001; J2704; J3010; J3490; J7120; 88305

== ENCOUNTER 2023-05-16 11:39 | Emergency (ER) | payer MEDICARE, OTHER ==
[2023-05-16 12:31] LABS: BASOPHILS PERCENT AUTO 0.5 % (0.0-1.5); EOSINOPHILS ABSOLUTE AUTO 0.3 K/uL (0.0-0.7); EOSINOPHILS PERCENT AUTO 4.8 % (0.0-7.0); HEMATOCRIT 42.7 % (38.0-50.0); HEMOGLOBIN 14.2 g/dL (13.0-17.0); LYMPHOCYTES ABSOLUTE AUTO 2.1 K/uL (0.6-2.4); LYMPHOCYTES PERCENT AUTO 32.9 % (16.0-40.0); MEAN CORPUSCULAR HEMOGLOBIN 30.9 pg (27.0-32.0); MEAN CORPUSCULAR HGB CONC 33.3 g/dL (31.0-37.0); MEAN CORPUSCULAR VOLUME 92.8 fL (80.0-98.0); MONOCYTES ABSOLUTE AUTO 0.7 K/uL (0.0-0.8); MONOCYTES PERCENT AUTO 11.6 % (0.0-15.0); NEUTROPHILS ABSOLUTE AUTO 3.2 K/uL (1.4-5.7); NEUTROPHILS PERCENT AUTO 50.2 % (48.0-80.0); NRBC ABSOLUTE 0 K/uL; PLATELET COUNT,PLT 196 K/uL (150-400)
[2023-05-16 13:17] LABS: A/G RATIO 0.8 (0.9-1.6); ALBUMIN 3.2 g/dL (3.4-5.0); BILIRUBIN TOTAL 0.6 mg/dL (0.2-1.0); CALCIUM 8.6 mg/dL (8.5-10.1); CARBON DIOXIDE,CO2 25.1 mmol/L (21.0-32.0); CREATININE 1.2 mg/dL (0.8-1.3); EST CRCL DRUG DOSING (CG) 45.14 mL/min; POTASSIUM,K 4.1 mmol/L (3.5-5.1)
[2023-05-16 19:16] VITALS: BP 138/63; PULSE 50
== END 2023-05-16 14:11 | disposition home or self-care (01) ==
LOC: MW.ED 11:39
DX: Z71.1 Person with feared health complaint in whom no diagnosis is made (principal)
CPT/HCPCS: 36415; 80053; 84484; 85025; 93005; 93010; 99282; 99285